=== PATIENT | male | born 1960 | race Caucasian/White ===

== ENCOUNTER 2019-10-18 13:10 | Emergency (ER) | payer MEDICARE, MEDICAID ==
[~2019-10-18] VITALS: Ht 182.9 cm; Wt 99.8 kg
[2019-10-18 13:20] VITALS: BP 151/100
--- NOTE | 2019-10-18 13:20 | NUR ---
ED Nurse Note: Patient walked into ED c/o of 10/10 left-sided upper tooth ache since this morning. Patient AxO x 4, patient resting in bed, bed in lowest position.
--- NOTE | 2019-10-18 13:23 | NUR ---
ED Nurse Note: Amandeep GRACIA at bedside.
--- NOTE | 2019-10-18 13:25 | Emergency Room Report ---
History of Present Illness General Chief Complaint: Toothache Source: Patient Present Illness HPI 59-year-old male with history of cocaine abuse here complaining of sudden onset of left upper premolar toothache that started this morning. Patient reports that due to his years of cocaine abuse he has come visit he is multiple dental problems. His dentist is not working right now. Rates the pain 10 out of 10 without radiation. Denies any fever and chills, pus drainage. Minimal swelling is noted left maxilla at the site of the affected tooth. Denies any chest pain, shortness of breath, headache and dizziness. Has not taken medication for symptom relief. Allergies: Coded Allergies: No Known Allergies (Unverified , 10/18/19) COVID-19 Screening Contact w/high risk pt: No Recent Travel to affected area: No Experienced COVID-19 symptoms?: No Patient History Past Medical History: see triage record Past Surgical History: none Pertinent Family History: none Immunizations: UTD Reviewed Nursing Documentation: PMH: Agreed; PSxH: Agreed Nursing Documentation-PMH Past Medical History: No Stated History Review of Systems All Other Systems: negative except mentioned in HPI Physical Exam Vital Signs Date Time Temp Pulse Resp B/P (MAP) Pulse Ox O2 Delivery O2 Flow Rate FiO2 10/18/19 13:15 97.5 81 22 151/100 (117) 94 Room Air Sp02 EP Interpretation: reviewed, normal General Appearance: no apparent distress, alert, GCS 15, non-toxic Head: normocephalic, atraumatic Eyes: bilateral eye normal inspection, bilateral eye PERRL ENT: hearing grossly normal, normal pharynx, no angioedema, normal voice, other - Infected and loose left upper perimolar tooth Neck: full range of motion, supple/symm/no masses Respiratory: chest non-tender, lungs clear, normal breath sounds, speaking full sentences Cardiovascular #1: regular rate, rhythm, no edema, no murmur Gastrointestinal: normal bowel sounds, non tender, soft, non-distended, no guarding, no rebound Rectal: deferred Genitourinary: no CVA tenderness Musculoskeletal: back normal Neurologic: alert, motor strength/tone normal, oriented x3, sensory intact, responsive, speech normal Psychiatric: judgement/insight normal, memory normal, mood/affect normal, no suicidal/homicidal ideation Skin: no rash Lymphatic: no adenopathy Medical Decision Making PA Attestation All my diagnosis and treatment plans were reviewed ad discussed with my supervising physician Dr. Guzman Diagnostic Impression: Primary Impression: Infected tooth Additional Impression: Infection of tooth socket ER Course 59-year-old male with history of cocaine abuse here complaining of sudden onset of left upper premolar toothache that started this morning. Patient reports that due to his years of cocaine abuse he has come visit he is multiple dental problems. His dentist is not working right now. Rates the pain 10 out of 10 without radiation. Denies any fever and chills, pus drainage. Minimal swelling is noted left maxilla at the site of the affected tooth. Denies any chest pain, shortness of breath, headache and dizziness. Has not taken medication for symptom relief. Ddx considered but are not limited to : Cellulitis, dental abscess, dental interventions. Superficial infection, abscess Vital signs: are WNL, pt. is afebrile H&PE are most consistent with: Infected tooth infected tooth socket ORDERS: Clindamycin, ibuprofen, lidocaine viscous ED INTERVENTIONS: None required at this time. DISCHARGE: At this time pt. is stable for d/c to home. Will provide printed patient care instructions, and any necessary prescriptions. Care plan and follow up instructions have been discussed with the patient prior to discharge. Gave a list of dental offices the patient can follow-up with, take medication as directed, be careful, no imaging is needed, patient to follow-up with dentist for further work-up. Take medication as directed, if worsening symptoms return to emergency room Last Vital Signs Date Time Temp Pulse Resp B/P (MAP) Pulse Ox O2 Delivery O2 Flow Rate FiO2 10/18/19 13:15 97.5 81 22 151/100 (117) 94 Room Air Disposition: HOME, SELF-CARE Condition: Stable Scripts Lidocaine HCl (Lidocaine HCl Viscous) 100 Ml Solution 15 ML MM TID, #120 ML Prov: Amandeep Sanchez 10/18/19 Ibuprofen (Ibu) 800 Mg Tablet 800 MG PO TID, #30 TAB Prov: Amandeep Sanchez 10/18/19 Clindamycin Hcl* (CLINDAMYCIN HCL*) 150 Mg Capsule 300 MG ORAL FOUR TIMES A DAY for 7 Days, #28 CAP Prov: mAandeep Sanchez 5/1/20 Patient Instructions: Dental Abscess, Dental Pain Additional Instructions: Take medication as directed, follow-up with your dentist, avoid eating with the affected side, if worsening symptoms return to the emergency room Amandeep Sanchez October 18, 2019 13:25
[2019-10-18] MEDS ORDERED: IBU800 MG PO (13:29)
[2019-10-18] MEDS ORDERED: CLINDAMYCIN HC150 MG ORAL (13:29)
[2019-10-18] MEDS ORDERED: MAGIC MOUTH WAS60 ML MM (13:29)
[2019-10-18 13:35] VITALS: BP 151/100
--- NOTE | 2019-10-18 13:35 | NUR ---
ER DISCHARGE NOTE: Patient is cleared to be discharged per Amandeep GRACIA, pt is aox4, on room air, with stable vital signs. pt was given dc and prescription instructions, pt was able to verbalize understanding, pt id band removed. pt is able to ambulate with steady gait. pt took all belongings.
== END 2019-10-18 13:35 | disposition home or self-care (01) ==
LOC: EMR 13:28
DX: K04.7 Periapical abscess without sinus (principal); M27.3 Alveolitis of jaws
CPT/HCPCS: 99282